=== PATIENT | female | born 1950 | race Caucasian/White ===

== ENCOUNTER 2017-09-03 19:38 | Inpatient (IN) | payer BC, MEDICARE ==
[~2017-09-03] VITALS: Ht 165.1 cm; Wt 64.4 kg
[2017-09-03] MEDS ORDERED: ACETAMINOPHEN 325 MG TAB PO PRN ×2 (22:30→23:15)
[2017-09-03] MEDS ORDERED: HYDROCHLOROTHIA25 MG PO (22:39)
[2017-09-03] MEDS ORDERED: ADVAIR 250-501 EACH (22:39)
[2017-09-03] MEDS ORDERED: LISINOPRIL40 MG PO (22:39)
[2017-09-03] MEDS ORDERED: CRESTOR10 MG PO (22:39)
[2017-09-03] MEDS ORDERED: ATENOLOL50 MG PO (22:39)
[2017-09-03 23:36] VITALS: BP 125/58
[2017-09-03 23:37] VITALS: BP 125/58
[2017-09-03 23:43] VITALS: BP 125/58
[2017-09-04] VITALS: BP 114/62
[2017-09-04 04:00] VITALS: BP 121/68
[2017-09-04] MEDS ORDERED: SALMETEROL/FLUTICASONE 250/50 INH SCH (07:00)
[2017-09-04 08:05] VITALS: BP 134/76
[2017-09-04] MEDS: HYDROCHLOROTHIAZIDE 25 MG TAB PO SCH (08:50)
[2017-09-04] MEDS ORDERED: HYDROCHLOROTHIAZIDE 25 MG TAB PO SCH (09:00)
[2017-09-04] MEDS ORDERED: GUAIFENESIN 600 MG TAB PO PRN (10:15)
[2017-09-04 10:17] LABS: BASOPHILS % 0.3 % (0.0-1.0); EOSINOPHILS # (AUTO) 0.1 (0.0-0.4); EOSINOPHILS % 0.8 % (0.0-6.0); HEMATOCRIT 32.9 % (34.2-44.1); LYMPHOCYTES # (AUTO) 1.2 (1.0-3.2); LYMPHOCYTES % 10.1 % (18.0-39.1); MEAN CORPUSCULAR HEMOGLOBIN 29.8 pg (28-32); MEAN CORPUSCULAR HGB CONC 33.4 g/dL (31-35); MEAN CORPUSCULAR VOLUME 89.2 fL (81-99); MONOCYTES # (AUTO) 0.8 (0.2-0.8); MONOCYTES % 7.3 % (4.4-11.3); NEUTROPHILS # (AUTO) 9.2 (2.1-6.9); NEUTROPHILS % 80.6 % (38.7-80.0); PLATELET COUNT 151 x10e3/uL (140-360); RED BLOOD COUNT 3.69 x10e6/uL (3.6-5.1); RED CELL DISTRIBUTION WIDTH 12.9 % (11.7-14.4)
[2017-09-04 10:39] LABS: ALANINE AMINOTRANSFERASE 21 IU/L (0-55); ALBUMIN 3.1 g/dL (3.5-5.0); ALKALINE PHOSPHATASE 61 IU/L (40-150); ANION GAP 12.4 mmol/L (8-16); BLOOD UREA NITROGEN 13 mg/dL (7-26); BUN/CREATININE RATIO 20 (6-25); CALCIUM 9.2 mg/dL (8.4-10.2); CARBON DIOXIDE 26 mmol/L (22-29); CHLORIDE 105 mmol/L (98-107); CREATININE, SERUM 0.64 mg/dL (0.57-1.11); EST GLOMERULAR FILTRATION RATE > 60 ML/MIN (60-); GLUCOSE 107 mg/dL (74-118); POTASSIUM 3.4 mmol/L (3.5-5.1); SODIUM 140 mmol/L (136-145)
--- NOTE | 2017-09-04 10:46 | History and Physical ---
CHIEF COMPLAINT: Cough and chest congestion. HISTORY OF PRESENT ILLNESS: This is a 66-year-old white woman who presents to [facility] with a 1-week history of worsening cough and chest congestion. The patient was actually diagnosed with influenza infection by nasal swab on Monday, August 28, 2017. The patient states she fully completed a 5-day course of oral Tamiflu. The patient states that she became much worse 1 day prior to admission. The patient stated that she was experiencing shaking chills, chest congestion and painful breathing. The patient was seen at an outlying emergency room and was diagnosed with right upper lobe pneumonia confirmed by chest radiograph. Thus, she was admitted to [facility]. REVIEW OF SYSTEMS GENERAL: Fever and chills last week, as well as the patient denies any weight change. HEENT: The patient complains of intense headaches. Denies any visual changes. She also denies any neck stiffness. CARDIOVASCULAR/RESPIRATORY: Worsening chest congestion and cough, as well as painful breathing over the last week. No chest pain or tightness. GI: Nausea but no vomiting. : No UTI symptoms. NEUROMUSCULAR: Complains of diffuse muscle aches over the last week. PAST MEDICAL HISTORY 1. Hypertensive heart disease. 2. Hyperlipidemia. 3. Prediabetes. 4. Chronic alcohol use. 5. Vitamin D deficiency. 6. Chronic obstructive asthma. 7. Chronic bronchitis. 8. History of childhood asthma. 9. Allergic rhinitis. 10. Former tobacco smoker. Quit in 2006. SURGICAL HISTORY 1. Lumbar spine surgery with autologous iliac crest in 2004. 2. Tonsillectomy with adenoidectomy and hernia repair as a child at age 8. 3. Bilateral ovarian cyst resection. SOCIAL HISTORY: She is . She lives with her . The patient states she quit smoking tobacco in 2006 as previously stated. The patient states she does drink alcohol on a regular basis in the form of wine. She usually drinks 2-3 glasses every night. 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 ALLERGIES 1. PENICILLIN (HIVES). 2. SULFA ANTIBIOTICS (HIVES). 3. CECLOR (HIVES). MEDICATIONS 1. Rosuvastatin 10 mg at bedtime. 2. Advair Diskus inhaler 100 mcg per 50 mg 1 puff b.i.d. 3. Hydrochlorothiazide 25 mg daily. 4. Atenolol 25 mg daily. 5. Lisinopril 40 mg daily. 6. Albuterol inhaler 2 puffs q.i.d. p.r.n. shortness of breath. 7. Estradiol vaginal cream applied to the vaginal area twice a week. FAMILY HISTORY: Father of a myocardial infarction at age 78, but he suffered from coronary artery disease starting in his 40s. Mother with hypertension and hyperlipidemia. The patient has a brother with hypertension. PHYSICAL EXAMINATION GENERAL: She is awake, alert and fully oriented. Looks slightly ill, but she is very pleasant and cooperative with exam. VITALS: Height is 5 feet 5 inches, weight is 140 pounds, blood pressure 134/76, pulse 62, respiratory rate 16, temperature 97.6, and oxygen saturation is 97% on room air. INTEGUMENT: Skin is warm and dry. No pallor of conjunctivae. HEENT: Anicteric sclerae. Dry mucous membranes. NECK: Supple. CARDIOVASCULAR: Regular rate and rhythm with an S4 gallop. LUNGS: The patient has faint bibasilar crackles and faint expiratory wheezing bilaterally. ABDOMEN: Benign. No organomegaly appreciated. EXTREMITIES: No edema or deformity. NEUROLOGY: Intact. IMPRESSION 1. Influenza with respiratory manifestations. 2. Pneumonia (right upper lobe). 3. Hypertensive heart disease. 4. Dehydration. PLAN 1. Gentle intravenous fluids. 2. Will continue home medications. 3. Will check white blood cell count. 4. Follow renal function. 5. Order chest x-ray. 6. Start intravenous antibiotics. 7. Supportive care. 8. Will not restart Tamiflu therapy since she finished a full 5-day course of this medication. I spent 45 minutes in the care of this patient. Job#: [id number] GAUTAM VELAZQUEZ
[2017-09-04] MEDS ORDERED: DEXTROSE 5%/0.9% SOD CHL 1,000 ML IV ONE (11:00)
--- NOTE | 2017-09-04 11:43 | Diagnostic Imaging Report ---
PROCEDURE: A single AP view of the chest. COMPARISON: None. INDICATIONS: PNEUMONIA, FLU FINDINGS: Lines/tubes: None. Lungs: The lungs are well inflated. Right upper lung field hazy opacification. Bibasilar subsegmental atelectasis. Pleura: There is no pneumothorax. Possible trace bilateral pleural effusions. Heart and mediastinum: The heart and the mediastinum are unremarkable. Bones: No acute bony abnormality. IMPRESSION: Right upper lobe hazy opacification, concerning for pneumonia. Possible bilateral trace pleural effusions. Dictated by: Javier Rosario M.D. on 09/04/2017 at 11:52 Electronically approved by: Javier Rosario M.D. on 09/04/2017 at 11:52
[2017-09-04 11:45] VITALS: BP 140/83
[2017-09-04] MEDS: CEFTRIAXONE SOD 1 GM VIAL IV SCH ×2 (12:30→23:06)
[2017-09-04] MEDS: VANCOMYCIN 1GM/NS 250 ML 250 ML IV SCH ×2 (12:45→23:06)
[2017-09-04] MEDS ORDERED: ALBUTEROL SULF 0.083% NEB SOLN 3 ML NEB NEB SCH (13:00)
[2017-09-04] MEDS ORDERED: SODIUM CHLORIDE 0.9% 250ML 250 ML ONE (13:18)
[2017-09-04] MEDS: BENZONATATE 100 MG CAP PO SCH ×2 (14:01→20:38)
[2017-09-04 15:41] VITALS: BP 147/82
[2017-09-04 20:00] VITALS: BP 165/78
[2017-09-04] MEDS ORDERED: LISINOPRIL 20 MG TAB PO SCH (21:00)
[2017-09-04] MEDS ORDERED: ATENOLOL 50 MG TAB PO SCH ×2 (21:00)
[2017-09-04] MEDS ORDERED: CRESTOR 10MG PO SCH (21:00)
[2017-09-04] MEDS ORDERED: SIMVASTATIN 40 MG TAB PO SCH (21:00)
[2017-09-04] MEDS ORDERED: POTASSIUM CHLORIDE 10 MEQ TABCR PO ONE (22:45)
[2017-09-05] VITALS: BP 130/68
[2017-09-05 02:19] VITALS: BP 130/68
[2017-09-05 04:00] VITALS: BP 115/59
[2017-09-05 06:43] LABS: BASOPHILS % 0.3 % (0.0-1.0); EOSINOPHILS # (AUTO) 0.2 (0.0-0.4); HEMATOCRIT 31.7 % (34.2-44.1); HEMOGLOBIN 10.6 g/dL (12.0-16.0); LYMPHOCYTES # (AUTO) 1.3 (1.0-3.2); LYMPHOCYTES % 16.8 % (18.0-39.1); MEAN CORPUSCULAR HEMOGLOBIN 30.1 pg (28-32); MEAN CORPUSCULAR HGB CONC 33.4 g/dL (31-35); MEAN CORPUSCULAR VOLUME 90.1 fL (81-99); MONOCYTES # (AUTO) 0.7 (0.2-0.8); MONOCYTES % 9.2 % (4.4-11.3); NEUTROPHILS # (AUTO) 5.6 (2.1-6.9); NEUTROPHILS % 71.2 % (38.7-80.0); PLATELET COUNT 155 x10e3/uL (140-360); RED BLOOD COUNT 3.52 x10e6/uL (3.6-5.1); RED CELL DISTRIBUTION WIDTH 12.8 % (11.7-14.4)
[2017-09-05 07:23] LABS: ALANINE AMINOTRANSFERASE 17 IU/L (0-55); ALBUMIN 2.8 g/dL (3.5-5.0); ALKALINE PHOSPHATASE 61 IU/L (40-150); ANION GAP 10.9 mmol/L (8-16); BLOOD UREA NITROGEN 12 mg/dL (7-26); BUN/CREATININE RATIO 19 (6-25); CALCIUM 8.5 mg/dL (8.4-10.2); CARBON DIOXIDE 22 mmol/L (22-29); CHLORIDE 111 mmol/L (98-107); CREATININE, SERUM 0.64 mg/dL (0.57-1.11); EST GLOMERULAR FILTRATION RATE > 60 ML/MIN (60-); GLUCOSE 101 mg/dL (74-118); POTASSIUM 3.9 mmol/L (3.5-5.1); SODIUM 140 mmol/L (136-145)
[2017-09-05] MEDS ORDERED: LEVAQUIN500 MG PO (08:17)
--- NOTE | 2017-09-05 08:27 | Discharge Summary ---
ADMIT DIAGNOSES 1. Influenza with respiratory manifestations. 2. Right upper lobe pneumonia. 3. Hypertensive heart disease. 4. Dehydration. DISCHARGE DIAGNOSES 1. Influenza with respiratory manifestations, resolving. 2. Right upper lobe pneumonia, resolving. 3. Hypertensive heart disease. 4. Dehydration, resolved. HOSPITAL COURSE: This is a 66-year-old white woman who was initially admitted to [facility] with the diagnosis influenza with respiratory manifestations, namely right upper lobe pneumonia. The patient improved clinically with intravenous vancomycin and ceftriaxone, which she tolerated quite well. The patient's hospitalization was unremarkable. On admission, the patient was diagnosed with dehydration, but improved with intravenous fluids. The patient's brief hospitalization was unremarkable. CONDITION ON DISCHARGE: Stable. DISCHARGE MEDICATIONS 1. Levofloxacin 750 mg 1 p.o. daily for 7 days. 2. Rosuvastatin 10 mg at bedtime. 3. Advair Diskus inhaler 100 mcg per 50 mcg 1 puff b.i.d. 4. Hydrochlorothiazide 25 mg daily. 5. Atenolol 25 mg daily. 6. Lisinopril 40 mg daily. 7. Albuterol 2 puffs q.i.d. p.r.n. shortness of breath. 8. Estradiol vaginal cream applied to the vaginal area twice a week. 9. Albuterol 0.83% nebulized treatments 1.25 mg strength q.i.d. scheduled for the next 5 days, and then every 4 hours as needed thereafter. FOLLOWUP INSTRUCTIONS: The patient was instructed to follow up with her primary care physician, namely myself, Dr. Ralf Gerard, within the next 10-14 days. RALF GERARD MD Job#: [id number] GAUTAM VELAZQUEZ
[2017-09-05] MEDS: BENZONATATE 100 MG CAP PO SCH (08:28)
[2017-09-05] MEDS: HYDROCHLOROTHIAZIDE 25 MG TAB PO SCH (08:28)
[2017-09-05 08:35] VITALS: BP 146/73
== END 2017-09-05 09:29 | disposition home or self-care (01) | DRG 195 ==
LOC: IMCU 19:38 → OBSVTOIN 09-04 15:53
PROVIDERS: ADMIT Internal Medicine; ATTEND Internal Medicine
DX: J10.1 Influenza due to other identified influenza virus with other respiratory manifestations (principal); E55.9 Vitamin D deficiency, unspecified; I11.9 Hypertensive heart disease without heart failure; J18.9 Pneumonia, unspecified organism; E86.0 Dehydration; E78.5 Hyperlipidemia, unspecified; R73.09 Other abnormal glucose; J42 Unspecified chronic bronchitis; J45.909 Unspecified asthma, uncomplicated; Z87.891 Personal history of nicotine dependence; Z88.1 Allergy status to other antibiotic agents; Z88.0 Allergy status to penicillin; Z88.2 Allergy status to sulfonamides
CPT/HCPCS: 36415; 71010; 80053; 85025; G0378; J0696; J3370; J7042; J7050

== ENCOUNTER 2017-12-18 15:33 | Observation (INO) | payer BC ==
[~2017-12-18] VITALS: Ht 165.1 cm; Wt 66.2 kg
[~2017-12-18 15:33] MED LIST: ADVAIR 250-501 EACH; ATENOLOL50 MG PO; CRESTOR10 MG PO; HYDROCHLOROTHIA25 MG PO; LEVAQUIN500 MG PO; LISINOPRIL40 MG PO
--- OUTSIDE RECORDS SUMMARY | 2017-12-18 15:36 | XMS REPORT ---
Author [facility] Address Unknown Phone Unavailable Care Team Providers Care Special Forces Senior Sergeant Name Role Phone SHARMAINE GERARD Unavailable Unavailable Problems This patient has no known problems. Allergies, Adverse Reactions, Alerts This patient has no known allergies or adverse reactions. Medications This patient has no known medications. Results Test Description Test Time Test Comments Text Results Atomic Results Result Comments CHEST SINGLE (PORTABLE) [place] [address] Patient Name: TAL ROSRAIO MR #: [id number] : 1950 Age/Sex: 66/F Req #: [id number] Adm Physician: SHARMAINE GERARD MD Ordered by: SHARMIANE GERARD MD Report #: [id number] Location: [facility] Room/Bed: [place] [address] Procedure: [id number] DX/CHEST SINGLE (PORTABLE) Exam Date: 09/04/17 Exam Time: 0950 REPORT STATUS: Signed PROCEDURE: A single AP view of the chest. COMPARISON: None. INDICATIONS: PNEUMONIA, FLU FINDINGS: Lines/tubes: None. Lungs: The lungs are well inflated. Right upper lung field hazy opacification. Bibasilar subsegmental atelectasis. Pleura: There is no pneumothorax. Possible trace bilateral pleural effusions. Heart and mediastinum: The heart and the mediastinum are unremarkable. Bones: No acute bony abnormality. IMPRESSION: Right upper lobe hazy opacification, concerning for pneumonia. Possible bilateral trace pleural effusions. Dictated by: Javier Rosario M.D. on 09/04/2017 at 11:52 Electronically approved by: Javier Rosario M.D. on 09/04/2017 at 11:52 Dictated By: JAVIER ROSARIO MD 1152 Transcribed By: RASTA on 09/04/17 1152 COPY TO: SHARMAINE GERARD MD
--- OUTSIDE RECORDS SUMMARY | 2017-12-18 15:36 | XMS REPORT | Clinical Summary ---
Author Author [facility] Address Unknown Phone Unavailable Care Team Providers Care Biomedical Equipment Technician Name Role Phone Tarik Bose MD PCP Allergies Active Allergy Reactions Severity Noted Date Comments Cefaclor 04/26/2017 Latex 04/26/2017 Penicillin G 04/26/2017 Sulfa (Sulfonamide 04/26/2017 Antibiotics) Current Medications Prescription Sig. Disp. Refills Start End Date Status Date atenolol (TENORMIN) 25 MG 02/27/20 Active tablet 17 hydroCHLOROthiazide 02/27/20 Active (HYDRODIURIL) 25 MG 17 tablet lisinopril 02/27/20 Active (PRINIVIL,ZESTRIL) 40 mg 17 tablet FLUTICASONE/SALMETEROL 03/21/20 Active (ADVAIR DISKUS INHL) 17 CRESTOR 10 mg tablet 02/27/20 Active 17 Active Problems Problem Noted Date Primary osteoarthritis of right hand 05/03/2017 Encounters Date Type Specialty Care Team Description 11/15/2017 Office Visit Orthopedic Surgery Sky Sainz MD 08/09/2017 Office Visit Orthopedic Surgery Sky Sainz MD Primary osteoarthritis of right hand (Primary Dx) 07/05/2017 Office Visit Orthopedic Surgery Sky Sainz MD Primary osteoarthritis of right hand (Primary Dx) 04/26/2017 Office Visit Orthopedic Surgery Sky Sainz MD Primary osteoarthritis of right hand (Primary Dx) after 12/17/2016 Social History Tobacco Use Types Packs/Day Years Used Date Former Smoker Quit: 2006 Smokeless Tobacco: Never Used Sex Assigned at Date Recorded Not on file Last Filed Vital Signs Not on file Plan of Treatment Health Maintenance Due Date Last Done Comments PAP SMEAR 1973 COLONOSCOPY 2002 MAMMOGRAM 2002 SHINGRIX VACCINE (#1) 2002 ZOSTER VACCINE 2012 PNEUMOCOCCAL 2017 POLYSACCHARIDE VACCINE AGE 65 AND OVER PNEUMOCOCCAL-13 2017 INFLUENZA VACCINE 03/21/2018 Results Not on fileafter 12/17/2016 Insurance Payer Benefit Subscriber ID Type Phone Address Plan / Group BCBS [employer] xxxxxxxxxxxx HMO CT IN AREA/HMO BLUE ESSENTIALS BCBS BCBS xxxxxxxxxxxx PPO CHOICE PPO/AMISH GUTIERREZ PPO
[2017-12-18] MEDS ORDERED: NITROGLYCERIN 2% OINT 1 GM PKT TOP ONE (16:15)
[2017-12-18] MEDS ORDERED: ASPIRIN 325 MG TAB PO ONE (16:15)
[2017-12-18] MEDS ORDERED: CLONIDINE HCL 0.1 MG TAB PO ONE (16:45)
[2017-12-18] MEDS ORDERED: POTASSIUM CHLORIDE 20 MEQ TAB CR PO STA (17:19)
[2017-12-18] MEDS ORDERED: POTASSIUM CHLORIDE 20 MEQ TAB CR PO ONE (17:33)
[2017-12-18] MEDS ORDERED: ASPIRIN 81 MG CHEW TAB PO ONE (17:45)
[2017-12-18] MEDS ORDERED: ACETAMINOPHEN 325 MG TAB PO ONE (18:15)
[2017-12-18] MEDS ORDERED: ACETAMINOPHEN 325 MG TAB PO PRN (20:45)
[2017-12-18] MEDS ORDERED: MORPHINE SULFATE 2 MG/ML SYR IV PRN (20:45)
[2017-12-18] MEDS ORDERED: SIMVASTATIN 40 MG TAB PO SCH (21:00)
[2017-12-18] MEDS: LISINOPRIL 20 MG TAB PO SCH (21:00)
[2017-12-18] MEDS ORDERED: ATENOLOL 50 MG TAB PO SCH (21:00)
[2017-12-18] MEDS ORDERED: SIMVASTATIN 20 MG TAB PO SCH (21:00)
--- OUTSIDE RECORDS SUMMARY | 2017-12-18 21:53 | XMS REPORT | Clinical Summary ---
Author Author [facility] Address Unknown Phone Unavailable Care Team Providers Care Material Specialist Name Role Phone Tarik Bose MD PCP [...]
--- OUTSIDE RECORDS SUMMARY | 2017-12-18 21:53 | XMS REPORT | Continuity of Care Document ---
Author Author [facility] Organization [facility] Address [address] [place] [address] Phone Unavailable Care Team Providers Care Survey Interviewer Name Role Phone SHARMAINE GERARD MD PCP Insurance Providers Guarantor Naomi Benavides Address [address] [address] Email [email or web address] Hmo Policy Number [id number] Subscriber's Name Naomi Benavides Relationship 18 Self / Same As Patient Group Number [id number] Group Name [facility] Effective Date 17 [facility] Policy Number [id number] Subscriber's Name Alfredo Redding Relationship 01 Group Number [id number] Group Name [employer] Effective Date 15 Advance Directives Directive Response Recorded Date/Time Does the patient have an advance directive? No 09/03/17 11:07pm If yes, is advance directive on file with [facility]? No 09/03/17 9:14pm If not on file with [facility] will patient provide a copy? No 09/03/17 9:14pm Do you have a Directive to Physician? No 12/18/17 5:35pm Do you have a Medical Power of Wine Consultant? No 12/18/17 5:35pm Do you have an out of hospital Do Not Resuscitate Order? No 12/18/17 5:35pm Do you have any special needs we should be aware of? No 12/18/17 5:35pm Do you have a support person here with you today? No 12/18/17 5:35pm Did patient receive Notice of Privacy Practices? Yes 12/18/17 5:35pm Did patient receive patient rights and responsibilities? Yes 12/18/17 5:35pm Problems Medical Problem Onset Date Status Chest pain Unknown Heart palpitations Unknown Medications Current Home Medications Medication Dose Units Route Directions Days Qty Instructions Start Date Atenolol 50 Mg Tablet 25 Mg Oral Bedtime Fluticasone/Salmeterol (Advair 250-50 Diskus) 1 Each Disk.w.dev 0 Hydrochlorothiazide 25 Mg Tablet 25 Mg Oral Daily 30 Tab Levofloxacin (Levaquin) 500 Mg Tablet 750 Mg Oral Daily Lisinopril 40 Mg Tablet Mg Oral Bedtime Rosuvastatin Calcium (Crestor) 10 Mg Tab 10 Mg Oral Bedtime THERAPEUTICALLY SUBSTITUTED WITH SIMVASTATIN 40MG Social History Social History Problem Response Recorded Date/Time Onset Date Status Hx Psychiatric Problems No 09/03/2017 11:07pm Not Applicable Not Applicable Smoking Status Start Date Stop Date Never Smoker Hospital Discharge Instructions No hospital discharge instruction information available. Plan of Care Discharge Date 12/18/17 9:00pm Disposition ADMITTED Condition at Discharge Stable Forms Provided Work/School Excuse Prescriptions See Medication Section Functional Status No functional status information available. Allergies, Adverse Reactions, Alerts Allergen Type Severity Reaction Status Last Updated Penicillin Allergy Unknown Active 09/03/17 Sulfa (Sulfonamide Antibiotics) Allergy Unknown Active 09/03/17 Ciprofloxacin Allergy Unknown Active 12/18/17 adhesive tape Allergy Mild Active 09/03/17 Immunizations No immunization information available. Vital Signs Acute Vital Signs Vital Response Date/Time Temperature (Fahrenheit) 98.5 degrees F (97.6 - 99.5) 09/05/2017 8:35am Pulse Pulse Rate (adult) 57 bpm (60 - 90) 09/05/2017 8:35am Respiratory Rate 18 bpm (12 - 24) 09/05/2017 8:35am Blood Pressure 146/73 mm Hg 09/05/2017 8:35am Height 5 ft 5 in 12/18/2017 3:35pm Weight 142 lb 12/18/2017 3:35pm Body Mass Index 23.6 kg/m^2 12/18/2017 3:35pm Results Laboratory Results Test Name Result Units Flags Reference Collection Date/Time Result Date/ Time Comments White Blood Count 7.85 x10e3/uL 4.8-10.8 09/05/2017 6:09/05/2017 7 :08am Red Blood Count 3.52 x10e6/uL L 3.6-5.1 09/05/2017 6:09/05/2017 7: 08am Hemoglobin 10.6 g/dL L 12.0-16.0 09/05/2017 6:09/05/2017 7:08am Hematocrit 31.7 % L 34.2-44.1 09/05/2017 6:09/05/2017 7:08am Mean Corpuscular Volume 90.1 fL 81-99 09/05/2017 6:09/05/2017 7: 08am Mean Corpuscular Hemoglobin 30.1 pg 28-32 09/05/2017 6:09/05/2017 7:08am Mean Corpuscular Hemoglobin Concent 33.4 g/dL 31-35 09/05/2017 6:09/05/2017 7:08am Red Cell Distribution Width 12.8 % 11.7-14.4 09/05/2017 6:2017 7:08am Platelet Count 155 x10e3/uL 140-360 09/05/2017 6:09/05/2017 7: 08am Neutrophils (%) (Auto) 71.2 % 38.7-80.0 09/05/2017 6:09/05/2017 7: 08am Lymphocytes (%) (Auto) 16.8 % L 18.0-39.1 09/05/2017 6:09/05/2017 7 :08am Monocytes (%) (Auto) 9.2 % 4.4-11.3 09/05/2017 6:09/05/2017 7: 08am Eosinophils (%) (Auto) 2.0 % 0.0-6.0 09/05/2017 6:09/05/2017 7: 08am Basophils (%) (Auto) 0.3 % 0.0-1.0 09/05/2017 6:09/05/2017 7:08am IM GRANULOCYTES % 0.5 % 0.0-1.0 09/05/2017 6:09/05/2017 7:08am Neutrophils # (Auto) 5.6 2.1-6.9 09/05/2017 6:09/05/2017 7:08am Lymphocytes # (Auto) 1.3 1.0-3.2 09/05/2017 6:09/05/2017 7:08am Monocytes # (Auto) 0.7 0.2-0.8 09/05/2017 6:09/05/2017 7:08am Eosinophils # (Auto) 0.2 0.0-0.4 09/05/2017 6:09/05/2017 7:08am Basophils # (Auto) 0.0 0.0-0.1 09/05/2017 6:09/05/2017 7:08am Absolute Immature Granulocyte (auto 0.04 x10e3/uL 0-0.1 09/05/2017 6: 09/05/2017 7:08am Sodium Level 140 mmol/L 136-145 09/05/2017 6:09/05/2017 7:23am Potassium Level 3.9 mmol/L 3.5-5.1 09/05/2017 6:09/05/2017 7:23am Chloride Level 111 mmol/L H 98-107 09/05/2017 6:09/05/2017 7:23am Carbon Dioxide Level 22 mmol/L 22-29 09/05/2017 6:09/05/2017 7: 23am Anion Gap 10.9 mmol/L 8-09/05/2017 6:09/05/2017 7:23am Blood Urea Nitrogen 12 mg/dL 7-09/05/2017 6:09/05/2017 7:23am Creatinine 0.64 mg/dL 0.57-1.11 09/05/2017 6:09/05/2017 7:23am BUN/Creatinine Ratio 19 6-25 09/05/2017 6:09/05/2017 7:23am Estimat Glomerular Filtration Rate > 60 ML/MIN 60- 09/05/2017 6: 7:23am Ranges were taken from the National Kidney Disease Education Program and the National Kidney Foundation literature. Reference ranges: 60 or greater: Normal 16-59 (for 3 consecutive months): Chronic kidney disease 15 or less: Kidney failure Glucose Level 101 mg/dL 74-118 09/05/2017 6:09/05/2017 7:23am Calcium Level 8.5 mg/dL 8.4-10.2 09/05/2017 6:09/05/2017 7:23am Total Bilirubin 0.3 mg/dL 0.2-1.2 09/05/2017 6:09/05/2017 7:23am Aspartate Amino Transf (AST/SGOT) 13 IU/L 5-34 09/05/2017 6:2017 7:23am Alanine Aminotransferase (ALT/SGPT) 17 IU/L 0-55 09/05/2017 6: 7:23am Total Protein 5.7 g/dL L 6.5-8.1 09/05/2017 6:09/05/2017 7:23am Albumin 2.8 g/dL L 3.5-5.0 09/05/2017 6:09/05/2017 7:23am Globulin 2.9 g/dL 2.3-3.5 09/05/2017 6:09/05/2017 7:23am Albumin/Globulin Ratio 1.0 0.8-2.0 09/05/2017 6:09/05/2017 7: 23am Alkaline Phosphatase 61 IU/L 40-150 09/05/2017 6:09/05/2017 7: 23am Procedures No procedure information available. Encounters Encounter Location Arrival/Admit Date Discharge/Depart Date Attending Provider Departed Emergency Room [facility] 12/18/17 3:33pm 9:00pm BERTRAM SANTOS MD Discharged Inpatient [facility] 09/04/17 3:53pm 09/05/17 9:29am SHARMAINE GERARD MD
[2017-12-18 22:24] VITALS: BP 152/76
[2017-12-18 22:35] VITALS: BP 152/76
[2017-12-18 22:38] VITALS: BP 152/76
[2017-12-18 23:04] LABS: CREATINE KINASE 51 IU/L (29-168)
[2017-12-19 04:35] VITALS: BP 119/71
[2017-12-19 06:39] LABS: BASOPHILS % 0.3 % (0.0-1.0); EOSINOPHILS # (AUTO) 0.2 (0.0-0.4); EOSINOPHILS % 2.6 % (0.0-6.0); HEMATOCRIT 32.6 % (34.2-44.1); HEMOGLOBIN 10.8 g/dL (12.0-16.0); LYMPHOCYTES # (AUTO) 1.4 (1.0-3.2); LYMPHOCYTES % 20.6 % (18.0-39.1); MEAN CORPUSCULAR HEMOGLOBIN 29.8 pg (28-32); MEAN CORPUSCULAR HGB CONC 33.1 g/dL (31-35); MEAN CORPUSCULAR VOLUME 90.1 fL (81-99); MONOCYTES # (AUTO) 0.5 (0.2-0.8); NEUTROPHILS # (AUTO) 4.5 (2.1-6.9); NEUTROPHILS % 68.2 % (38.7-80.0); PLATELET COUNT 144 x10e3/uL (140-360); RED BLOOD COUNT 3.62 x10e6/uL (3.6-5.1); RED CELL DISTRIBUTION WIDTH 13.2 % (11.7-14.4)
[2017-12-19] MEDS ORDERED: SALMETEROL/FLUTICASONE 250/50 INH SCH (07:00)
[2017-12-19 07:05] LABS: ANION GAP 13.6 mmol/L (8-16); BLOOD UREA NITROGEN 15 mg/dL (7-26); BUN/CREATININE RATIO 21 (6-25); CALCIUM 9.2 mg/dL (8.4-10.2); CARBON DIOXIDE 26 mmol/L (22-29); CHLORIDE 106 mmol/L (98-107); CHOL/HDL RATIO 2.5 (3.0-3.6); CHOLESTEROL 155 MD/DL (0-199); CREATINE KINASE 41 IU/L (29-168); CREATININE, SERUM 0.71 mg/dL (0.57-1.11); EST GLOMERULAR FILTRATION RATE > 60 ML/MIN (60-); GLUCOSE 93 mg/dL (74-118); HDL CHOLESTEROL 63 MG/DL (40-60); LDL CHOLESTEROL 70 MG/DL (60-130); POTASSIUM 4.6 mmol/L (3.5-5.1); SODIUM 141 mmol/L (136-145); TRIGLYCERIDES 108 MG/DL (0-149)
[2017-12-19 08:19] VITALS: BP 163/82
[2017-12-19] MEDS ORDERED: HYDROCHLOROTHIAZIDE 25 MG TAB PO SCH (09:00)
[2017-12-19] MEDS: LISINOPRIL 20 MG TAB PO SCH (09:07)
--- NOTE | 2017-12-19 09:20 | History and Physical ---
CHIEF COMPLAINT: "I feel my heart flipping." HPI: This is a 67-year-old white woman who presents to [facility] Emergency Room with complaints of chest discomfort. The patient states that 3 days prior to admission she began experiencing palpitations, which would occur intermittently. The patient states that in the past she has experienced similar symptoms but on this occasion it has been more frequent and more intense. The patient denies any dizziness with palpitations but did note some lightheadedness. The patient, however, feels that the lightheadedness could be secondary to cervical spine arthritis, particularly with extension of her cervical spine. The patient denied any associated shortness of breath, nausea or diaphoresis. The patient had a chest x-ray done in the emergency room which showed cardiomegaly, otherwise unremarkable. The patient did undergo a CT of the chest in the emergency room that revealed a 7-mm pulmonary nodule in the left upper lobe, which corresponded with similar abnormality seen on chest x-ray. The patient states she quit smoking tobacco in 2006. The patient's initial cardiac enzymes were unremarkable. Complete blood count was also normal, except the hemoglobin was low at 10.8 g/dL. The patient's blood chemistries were normal. LDL cholesterol was 70 mg/dL. Triglycerides were 108 mg/dL. The patient was admitted for further evaluation and treatment. In the emergency room, the initial cardiac rhythm was thought to be atrial fibrillation, but currently she has sinus rhythm. On arrival to the emergency room, the patient's blood pressure was 227/89. REVIEW OF SYSTEMS GENERAL: Weight has been stable. No fever or chills. HEENT: No headache. No vision changes. CARDIOVASCULAR/RESPIRATORY: Palpitations as described in the HPI. GI: No nausea, vomiting, or constipation. : No UTI symptoms. NEUROMUSCULAR: Patient had slight lightheadedness with these palpitations but no dizziness. Denied any limb weakness or numbness. She does have chronic arthritic pain in her neck. FAMILY HISTORY: Father had coronary artery bypass. Father, mother and brother with hypertension and hyperlipidemia. SOCIAL HISTORY: This woman is and lives with her . 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 Patient states she just drinks wine, usually 2 to 3 glasses every night. PAST MEDICAL HISTORY 1. Hypertensive heart disease. 2. Hyperlipidemia. 3. Chronic alcohol use. 4. Prediabetes. 5. Vitamin D deficiency. 6. Chronic bronchitis. 7. Chronic obstructive asthma. 8. History of childhood asthma. 9. Allergic rhinitis. 10. Former tobacco smoker (quit in 2006). SURGICAL HISTORY 1. Lumbar spine surgery with autologous iliac crest in 2004. 2. Tonsillectomy with adenoidectomy at age 8. 3. Hernia repair at age 8. 4. Bilateral ovarian cyst resection. ALLERGIES 1. PENICILLIN (HIVES). 2. SULFA ANTIBIOTICS (HIVES). 3. CECLOR (HIVES). HOME MEDICATIONS 1. Rosuvastatin 10 mg at bedtime. 2. Advair inhaler 100 mcg per 50 mg 1 puff b.i.d. 3. Hydrochlorothiazide 25 mg daily. 4. Atenolol 25 mg daily. 5. Lisinopril 40 mg daily. 6. Albuterol inhaler 2 puffs q.i.d. p.r.n. shortness of breath or wheezing. 7. Estradiol vaginal cream applied to the vaginal area twice a week. 8. Albuterol 1.25 mg strength nebulizer treatments, use as needed for severe shortness of breath or wheezing. PHYSICAL EXAMINATION GENERAL: She is awake. She is alert. She is fully oriented. She is very pleasant and cooperative with exam. She does not appear in any distress. VITALS: Blood pressure in the emergency room was 227/99. Currently it is 160/82. Pulse currently is 60. Respiratory rate 18. Oxygen saturation 97% on room air. Height is 5 feet 5 inches. Weight is 146 pounds. Calculated body mass index is 24. INTEGUMENT: Skin is warm and dry. No pallor, jaundice or diaphoresis. HEENT: Anicteric sclerae. Moist mucous membranes. NECK: Supple. No evidence of jugular venous distention. CARDIOVASCULAR: Distant heart sounds. Regular rate and rhythm. LUNGS: No rales, no rhonchi, no wheezing. ABDOMEN: Soft. Normal bowel sounds. Nontender. EXTREMITIES: Patient has osteoarthritic deformities in the joints of her hands bilaterally. NEUROLOGY: Intact. DIAGNOSES 1. Palpitations, possible paroxysmal atrial fibrillation. 2. Hypertensive urgency. 3. Chronic alcohol use. PLAN 1. Rule out myocardial infarction. 2. Order a 2-D echocardiogram. 3. Consult cardiology for blood pressure control. 4. Ask the patient to limit her alcohol use to 1 or 2 alcoholic drinks in a 24-hour period. 5. Continue home medications. 6. The patient will likely undergo a stress test, either in an inpatient or outpatient setting in the near future. I spent 45 minutes in the care of this patient. Job#: [id number]
--- NOTE | 2017-12-19 09:57 | Consultation ---
DATE OF CONSULTATION: December 19, 2017 CARDIOLOGY CONSULTATION REQUESTING PHYSICIAN: Dr. Bose REASON FOR CONSULTATION: Palpitations. HISTORY OF PRESENT ILLNESS: This is a 67-year-old woman with a history of hypertension, hyperlipidemia, asthma and osteoarthritis, who presents with complaint of palpitations. The patient reports she was in her usual state of health until 3 days prior to admission when she began noticing her heart flip-flopping in her chest. This occurred off and on for a few beats at a time but would occur several times a day. She denied any chest pain or shortness of breath, but states she felt like something was condensing in her chest. She denies any edema, orthopnea or PND, but does note she did feel lightheaded when she lifted her head up. Of note, she drinks 2 cups of coffee a day and 2 big glasses of wine almost daily. REVIEW OF SYSTEMS: Negative, except as per HPI. PAST MEDICAL HISTORY 1. Hypertension. 2. Hyperlipidemia. 3. Asthma. 4. Osteoarthritis. PAST SURGICAL HISTORY 1. Inguinal hernia repair. 2. Tonsillectomy. 3. Ovarian dermoid tumor resection. 4. section. 5. Back surgery. ALLERGIES: PLEASE SEE EMR. MEDICATIONS: Please see medication list. SOCIAL HISTORY: She smoked off and on for 35 years, but quit in 2006. She drinks 2 big glasses of wine almost daily. Denies any illicit drugs. She teaches at [employer]. FAMILY HISTORY: Pertinent for father with redo coronary artery bypass graft. PHYSICAL EXAMINATION VITAL SIGNS: Temperature 98.7 degrees, pulse 58, respiratory rate 18, blood pressure 163/82, oxygen saturation 97% on room air. GENERAL: Well-developed, well-nourished woman in no acute distress. HEENT: Normocephalic and atraumatic. Pupils are equal. No scleral icterus. NECK: Supple. No thyromegaly or cervical lymphadenopathy. No carotid bruit. LUNGS: Clear to auscultation bilaterally. No wheezes or crackles. CARDIOVASCULAR: Normal rate, regular rhythm. No murmur. Normal S1 and S2. ABDOMEN: Soft. Nontender. EXTREMITIES: No edema. NEURO: Nonfocal exam. LABS: WBC 6.65, hemoglobin 10.8, hematocrit 32.6, platelets 144. Sodium 141, potassium 4.6, chloride 106, CO2 26, BUN 15, creatinine 0.71. Troponin less than 0.001. Cholesterol 155, triglycerides 108, LDL 70, HDL 63. CT CHEST: A 7-mm pulmonary nodule in the left upper lobe corresponding with abnormality seen on chest x-ray. Recommend followup in 6 months and then again in 18 to 24 months according to Fleischner protocol. Coronary artery calcifications. No significant hilar or mediastinal lymph nodes. Atherosclerotic calcifications in the thoracic aorta. CHEST X-RAY: Enlarged cardiac silhouette size. Subcentimeter nodular density over the left upper chest as described above. EKG: Normal sinus rhythm. Normal ECG. IMPRESSION 1. Palpitations. 2. Hypertension, uncontrolled. 3. Hyperlipidemia. 4. Chest discomfort. RECOMMENDATIONS: Trend cardiac enzymes to rule out myocardial infarction. Patient's blood pressure remains poorly controlled. Recommend stopping atenolol and placing the patient on carvedilol. Obtain echocardiogram. Check TSH. If echocardiogram is normal and the patient rules out for myocardial infarction, she will need to follow up in the office for a 24-hour Holter monitor as well as outpatient stress test to evaluate for ischemia, given findings of coronary artery calcification on CT and risk factors. Thank you for this consult. We will continue to follow. Job#: [id number] ALIVIA
[2017-12-19 11:56] VITALS: BP 155/83
[2017-12-19] MEDS ORDERED: CARVEDILOL 12.5 MG TAB PO SCH (17:00)
--- NOTE | 2017-12-20 14:59 | Discharge Summary ---
ADMIT DIAGNOSES 1. Palpitations, possible paroxysmal atrial fibrillation. 2. Hypertensive urgency. 3. Chronic alcohol use. DISCHARGE DIAGNOSES 1. Hypertensive urgency, resolved. 2. Hypertensive heart disease. 3. Palpitations, resolved. 4. Chronic alcohol use. HOSPITAL COURSE: This is a 67-year-old white woman who was initially admitted to [facility] with diagnosis of palpitations, possible paroxysmal atrial fibrillation. On telemetry monitoring and electrocardiograms no evidence of atrial fibrillation was appreciated. Patient was seen by cardiology during this hospitalization, Dr. Mary Pulliam. Patient underwent 2D echocardiogram which revealed an ejection fraction of 60% with no evidence of diastolic dysfunction. Patient also underwent serial cardiac enzymes as well as electrocardiograms which did not reveal any evidence of acute myocardial or ischemic infarction. The patient was counseled on the possibility of chronic alcohol use causing paroxysmal atrial fibrillation. The patient's condition on discharge was stable. DISCHARGE MEDICATIONS 1. Lisinopril 40 mg nightly. 2. Hydrochlorothiazide 25 mg daily. 3. Simvastatin 10 mg nightly. 4. Carvedilol 12.5 mg b.i.d. FOLLOWUP INSTRUCTIONS: Patient instructed to follow up with Dr. Pulliam within 1 week for outpatient cardiac stress testing. Patient was told that she is not to drink more than 1 or 2 alcoholic drinks in a 24-hour period. Patient is to follow up with her primary care physician, Dr. Ralf Gerard, within 10 to 14 days. RALF GERARD MD Job#: [id number] DG MTDD
== END 2017-12-19 15:52 | disposition home or self-care (01) ==
LOC: FSED 15:33 → IMCU 21:51
PROVIDERS: ADMIT Internal Medicine; ATTEND Internal Medicine
DX: I16.0 Hypertensive urgency (principal); R00.2 Palpitations; I11.9 Hypertensive heart disease without heart failure; F10.10 Alcohol abuse, uncomplicated; J45.909 Unspecified asthma, uncomplicated; R91.1 Solitary pulmonary nodule; Z87.891 Personal history of nicotine dependence; Z82.49 Family history of ischemic heart disease and other diseases of the circulatory system; E78.5 Hyperlipidemia, unspecified
CPT/HCPCS: 36415 ×2; 71046; 71250; 80048; 80053; 80061; 81003; 82550 ×2; 82553 ×2; 84439; 84443; 84484 ×2; 85025 ×2; 93005; 93306; 99284; G0378 ×2; J2270

== ENCOUNTER → 2018-01-03 | Outpatient (CLI) | payer BC ==
--- NOTE | 2018-01-03 09:15 | Diagnostic Imaging Report ---
PROCEDURE:GALLBLADDER ULTRASOUND COMPARISON:None. INDICATION:Upper abdominal pain TECHNIQUE:Swartz scale color Doppler ultrasound gallbladder FINDINGS: Normal gallbladder. No stones or sludge. Gallbladder wall thickness: 0.2 cm. Common bile duct diameter: 0.3 cm. Right liver span 16 cm. Mildly increased liver echogenicity with a smooth margin. Portal vein diameter 1.1 cm; normal flow direction. Imaged portions of the abdominal aorta, inferior vena cava and right kidney are normal. CONCLUSION: 1. Normal gallbladder. 2. Hepatic steatosis with mild hepatomegaly. Dictated by: Vahe Christina M.D. on 01/03/2018 at 9:18 Electronically approved by: Vahe Christina M.D. on 01/03/2018 at 9:18
== END ==
LOC: US 07:50
PROVIDERS: ATTEND Internal Medicine
DX: R10.10 Upper abdominal pain, unspecified (principal)
CPT/HCPCS: 76705

== ENCOUNTER → 2019-06-20 | Outpatient (CLI) | payer OTHER ==
--- NOTE | 2019-06-20 12:40 | Diagnostic Imaging Report ---
Left knee MRI without contrast. History: Knee pain. Fall. Swelling. Decreased range of motion. Contusion. Comparison: None. Technique: Multiplanar multi-sequence MRI of the knee without contrast. Findings: Medial compartment: Obliquely oriented nondisplaced undersurface tear of the posterior horn of the medial meniscus. Medial meniscocapsular sprain. The medial collateral ligament complex is otherwise intact. The medial compartmental articular cartilage surfaces are slightly thin. Lateral compartment: No meniscal tear or cartilage abnormality. The LCL complex is normal. Intercondylar notch: The ACL and PCL are intact. Patellofemoral compartment: Mild articular cartilage fraying and fissuring in the patellofemoral compartment Extensor mechanism: The quadriceps and patellar tendons are normal. Other findings: There is a joint effusion and synovitis. There is no acute fracture, subluxation or avascular necrosis. Lobulated septated Wade's cyst with evidence of partial rupture into the posterior soft tissues IMPRESSION: Lobulated septated Wade's cyst with evidence of partial rupture into the posterior soft tissues. Obliquely oriented nondisplaced undersurface tear of the posterior horn of the medial meniscus. Medial meniscocapsular sprain. The medial collateral ligament complex is otherwise intact Signed by: Dr. North Fernandez M.D. on 06/20/2019 12:37 PM
== END ==
LOC: MRI 11:04
PROVIDERS: ATTEND Family Medicine
DX: M25.562 Pain in left knee (principal)

== ENCOUNTER → 2019-07-24 | Day surgery (SDC) | payer OTHER ==
[2019-07-22 15:26] LABS: BASOPHILS % 0.4 % (0.0-1.0); EOSINOPHILS # (AUTO) 0.2 (0.0-0.4); EOSINOPHILS % 1.9 % (0.0-6.0); HEMOGLOBIN 12.7 g/dL (12.0-16.0); LYMPHOCYTES # (AUTO) 1.6 (1.0-3.2); LYMPHOCYTES % 16.7 % (18.0-39.1); MEAN CORPUSCULAR HEMOGLOBIN 29.8 pg (28-32); MEAN CORPUSCULAR HGB CONC 32.6 g/dL (31-35); MEAN CORPUSCULAR VOLUME 91.5 fL (81-99); MONOCYTES % 10.1 % (4.4-11.3); NEUTROPHILS # (AUTO) 6.8 (2.1-6.9); NEUTROPHILS % 70.3 % (38.7-80.0); PLATELET COUNT 252 x10e3/uL (140-360); RED BLOOD COUNT 4.26 x10e6/uL (3.6-5.1); RED CELL DISTRIBUTION WIDTH 13.1 % (11.7-14.4)
--- NOTE | 2019-07-22 15:37 | Diagnostic Imaging Report ---
Chest, PA and lateral. History: Preoperative evaluation for left knee surgery. Comparison: None available. Discussion: The heart is within normal limits of size. The mediastinal and hilar contours are unremarkable. Left basilar atelectasis is present. No focal consolidation, sizable pleural effusion, or pneumothorax. IMPRESSION: No radiographic evidence of acute cardiopulmonary abnormality. Signed by: Ran Lopez MD on 07/22/2019 3:34 PM
[~2019-07-24] MED LIST changes: +ALBUTEROL0.63 MG/3 INH; +BUPIVACAINE 0.5%/EPI 30 ML SDV INJ ONE; +CLINDAMYCIN PHOS 900MG/ 50ML 50 ML IV ONE; +DEXAMETHASONE SOD PHOS INJ 4 MG/ML VIAL ONE; +ESTRACE42.5 GM TOP; +FENTANYL CITRATE/PF 100MCG/2 ML INJ ONE; +LEVOTHYROXINE50 MCG PO; +LIDOCAINE HCL 2% LOCAL INJ 5 ML SDV VIAL INJ ONE; +METOPROLOL SUCC25 MG PO; +MIDAZOLAM HCL 2 MG/2 ML VIAL ONE; +NALOXONE HCL INJ 0.4 MG/ML AMP ONE; +ONDANSETRON HCL INJ 2MG/ML 2ML 2 MG/ML VIAL ONE; +PROPOFOL IV EMULSION 10 MG/ML 20 ML VIAL ONE; +SEVOFLURANE INHAL SOLN 250 ML PEN BTL ONE; +VITAMIN D400 UNIT PO
[2019-07-24 07:57] LABS: ANION GAP 12.8 mmol/L (8-16); BLOOD UREA NITROGEN 18 mg/dL (7-26); BUN/CREATININE RATIO 23 (6-25); CALCIUM 8.8 mg/dL (8.4-10.2); CARBON DIOXIDE 25 mmol/L (22-29); CHLORIDE 103 mmol/L (98-107); CREATININE, SERUM 0.77 mg/dL (0.57-1.11); EST GLOMERULAR FILTRATION RATE > 60 ML/MIN (60-); GLUCOSE 91 mg/dL (74-118); POTASSIUM 3.8 mmol/L (3.5-5.1); SODIUM 137 mmol/L (136-145)
[2019-07-24 12:00] VITALS: BP 130/65
--- NOTE | 2019-07-26 13:58 | Operative Report ---
DATE OF PROCEDURE: 07/24/2019 SURGEON: Tarik Reddy MD PREOPERATIVE DIAGNOSES: Left knee medial meniscus tear and left knee degenerative joint disease of the knee. POSTOPERATIVE DIAGNOSES: Left knee medial meniscus tear and left knee degenerative joint disease of the knee. OPERATIONS AND PROCEDURES PERFORMED: The patient underwent left knee exam under anesthesia, left knee arthroscopy, left knee partial medial meniscectomy, left knee chondroplasty of the medial femoral condyle, medial tibial plateau, and lateral tibial plateau. LINING PRESSER: LAURA Garcia. ANESTHESIA: General endotracheal intubation anesthesia. IV FLUIDS: Per the anesthesia record. BRIEF DESCRIPTION OF THE PATIENT'S OPERATIVE PROCEDURE: Ms. Benavides was taken to the operating room and placed in the supine position on the operating table. Following induction of general anesthesia as well as endotracheal intubation, the patient's left lower extremity was examined under anesthesia. She was found to have a mild effusion within the knee joint, but otherwise ligamentously stable knee. The patient's lower extremity was prepped and draped in standard surgical fashion. A 2-port technique was used to provide this patient's arthroscopic evaluation of the knee joint. Examination of the suprapatellar pouch and medial and lateral gutters found no evidence of loose bodies. There was no significant evidence of chondromalacia of the patellar and trochlear surfaces. The scope was advanced to medial compartment. Examination of the medial compartment demonstrated an undersurface tear of the posterior horn of the medial meniscus. There was also chondromalacia of the articulating surfaces. A combination of biting forceps and motorized shaver were used to resect the torn portion of meniscus. Chondroplasties of the medial femoral condyle and medial tibial plateau were performed at this time. Scope was then advanced to the intercondylar notch. Anterior cruciate ligament was identified and found to be intact. Scope was then advanced to the lateral compartment and there was chondromalacia of the lateral tibial plateau. A chondroplasty of the surface was performed. The knee was then deflated with sterile normal saline. Each of the portal sites were closed using 4-0 nylon suture. The portal sites as well as the knee itself were injected with 0.5% Marcaine with epinephrine. Sterile dressings were applied. The patient was awakened and taken to postanesthesia care unit in stable condition. Arleth Obrien acted as purchasing administrative assistant for this case and was necessary for both prepping and draping the patient as well as the position of the leg to allow this case to be successful. MD GM Doe/MOHAN /[id number]
== END | disposition home or self-care (01) ==
LOC: OR 06:56
PROVIDERS: ATTEND Specialist
DX: S83.222A Peripheral tear of medial meniscus, current injury, left knee, initial encounter (principal); M17.12 Unilateral primary osteoarthritis, left knee; M71.22 Synovial cyst of popliteal space [Baker], left knee; M94.262 Chondromalacia, left knee; S69.92XA Unspecified injury of left wrist, hand and finger(s), initial encounter; R03.0 Elevated blood-pressure reading, without diagnosis of hypertension; E78.5 Hyperlipidemia, unspecified; E03.9 Hypothyroidism, unspecified; J45.909 Unspecified asthma, uncomplicated; W01.198A Fall on same level from slipping, tripping and stumbling with subsequent striking against other object, initial encounter; Y92.89 Other specified places as the place of occurrence of the external cause; Y99.0 Civilian activity done for income or pay; Z88.0 Allergy status to penicillin; Z88.2 Allergy status to sulfonamides; Z87.891 Personal history of nicotine dependence; Z88.6 Allergy status to analgesic agent; Z88.1 Allergy status to other antibiotic agents; Z91.013 Allergy to seafood; Z01.810 Encounter for preprocedural cardiovascular examination; Z01.812 Encounter for preprocedural laboratory examination; Z01.818 Encounter for other preprocedural examination
CPT/HCPCS: 29881; 36415; 71046; 80048; 85025; 93005; J1100; J2001; J2250; J2310; J2405; J2704; J3010

== ENCOUNTER 2019-09-25 14:54 | Outpatient (RCR) | payer OTHER ==
[~2019-09-25 14:54] MED LIST changes: -BUPIVACAINE 0.5%/EPI 30 ML SDV INJ ONE; -CLINDAMYCIN PHOS 900MG/ 50ML 50 ML IV ONE; -DEXAMETHASONE SOD PHOS INJ 4 MG/ML VIAL ONE; -FENTANYL CITRATE/PF 100MCG/2 ML INJ ONE; -LIDOCAINE HCL 2% LOCAL INJ 5 ML SDV VIAL INJ ONE; -MIDAZOLAM HCL 2 MG/2 ML VIAL ONE; -NALOXONE HCL INJ 0.4 MG/ML AMP ONE; -ONDANSETRON HCL INJ 2MG/ML 2ML 2 MG/ML VIAL ONE; -PROPOFOL IV EMULSION 10 MG/ML 20 ML VIAL ONE; -SEVOFLURANE INHAL SOLN 250 ML PEN BTL ONE
== END 2019-10-19 ==
LOC: PT 14:54
PROVIDERS: ATTEND Specialist
DX: M17.12 Unilateral primary osteoarthritis, left knee (principal); S83.242A Other tear of medial meniscus, current injury, left knee, initial encounter
CPT/HCPCS: 97139